=== PATIENT | male | born 1960 | race Caucasian/White ===

== ENCOUNTER 2016-12-10 08:55 | Inpatient (IN) | payer BC ==
[2016-11-21 11:04] LABS: % IMMATURE GRANULYOCYTES 0.4 % (0.0-1.1); ABSOLUTE IMMATURE GRANULOCYTES 0.03 10^3/uL (0.00-0.10); ADD DIFF? NO; ADD MORPH? NO; ADD SCAN? NO; ATYPICAL LYMPHOCYTE FLAG 0 (0-99); FRAGMENT RBC FLAG 0 (0-99); HEMATOCRIT 46.4 % (40.0-51.0); HEMOGLOBIN 16.4 g/dL (13.7-17.5); LEFT SHIFT FLG 0 (0-99); LIPEMIA HEMOLYSIS FLAG 90 (0-99); MEAN CELL HEMOGLOBIN 33.1 pg (27.9-34.1); MEAN CELL HEMOGLOBIN CONCENTR. 35.3 g/dL (32.4-36.7); MEAN CELL VOLUME 93.5 fL (81.5-99.8); MEAN PLATELET VOLUME 8.7 fL (8.7-11.7); PLATELET CLUMPS FLAG 0 (0-99); PLATELET COUNT 319 10^3/uL (150-400); RED BLOOD CELL COUNT 4.96 10^6/uL (4.40-6.38); RED CELL DISTRIBUTION WIDTH 12.2 % (11.5-15.2)
[~2016-12-10 08:55] MED LIST: BACITRACIN 50,000 UNITS/10 ML SYR IRR ONE; BUPIVACAINE/EPI 0.25% 30 ML SDV ONE; THROMBIN (RECOMBINANT) 5,000 UNIT VIAL TP ONE; ceFAZolin 2 GM/DEXTROSE 100 ML IV ONE
[2016-12-10] MEDS ORDERED: LR 1,000 ML IV ONE (09:11)
[2016-12-10] MEDS ORDERED: LIDOCAINE 1% 5 ML SDV ID PRN (09:11)
[2016-12-10] MEDS ORDERED: CEFAZOLIN 2 GM/DEXTROSE/100 ML BAG IV ONE (09:16)
[2016-12-10] MEDS ORDERED: LIDOCAINE 1% 5 ML SDV ONE (09:16)
[2016-12-10] MEDS ORDERED: fentaNYL 250 MCG/5 ML INJ ONE (09:42)
[2016-12-10] MEDS ORDERED: REMIFENTANIL HCL 1 MG VIAL ONE ×3 (09:42→13:57)
[2016-12-10] MEDS ORDERED: PROPOFOL/EMULSION 500 MG/50 ML BOTTLE IV ONE ×3 (09:42→13:57)
[2016-12-10] MEDS ORDERED: ROCURONIUM 50 MG/5 ML VIAL ONE (09:45)
[2016-12-10] MEDS ORDERED: MIDAZOLAM 2 MG/2 ML VIAL ONE (10:01)
[2016-12-10] MEDS ORDERED: PHENYLEPHRINE HCL 100 MCG/ML SYR ONE (10:18)
[2016-12-10] MEDS ORDERED: ALBUMIN 5% 250 ML BOTTLE IV ONE (10:42)
[2016-12-10] MEDS ORDERED: METHOCARBAMOL 750 MG TAB PO PRN (10:46)
[2016-12-10] MEDS ORDERED: BISACODYL 10 MG SUPP PR PRN (10:46)
[2016-12-10] MEDS ORDERED: HYDROmorphONE/DILAUDID 6 MG/30 ML PCA IV PRN (10:46)
[2016-12-10] MEDS ORDERED: HYDROCODONE/APAP 5/325 TAB PO PRN (10:46)
[2016-12-10] MEDS ORDERED: ONDANSETRON DISINTEGRATING 4 MG TAB PO PRN (10:46)
[2016-12-10] MEDS ORDERED: ONDANSETRON 4 MG/2 ML VIAL IVP PRN (10:46)
[2016-12-10] MEDS ORDERED: POLYETHYLENE GLYCOL 3350 17 GM PKT PO PRN (10:46)
[2016-12-10] MEDS ORDERED: diphenhydrAMINE 25 MG CAP PO PRN (10:46)
[2016-12-10] MEDS ORDERED: TEMAZEPAM 15 MG CAP PO PRN (10:46)
[2016-12-10] MEDS ORDERED: MAGNESIUM HYDROXIDE 30 ML UDCUP PO PRN (10:46)
[2016-12-10] MEDS ORDERED: LACTULOSE 20 GM/30 ML UDCUP PO PRN (10:46)
[2016-12-10] MEDS ORDERED: ACETAMINOPHEN 325 MG TAB PO PRN (10:46)
[2016-12-10] MEDS ORDERED: NALOXONE HCL 0.4 MG/ML INJ IVP PRN (10:46)
[2016-12-10] MEDS ORDERED: HYDROmorphONE/DILAUDID 2 MG TAB PO PRN (10:53)
[2016-12-10] MEDS ORDERED: ONDANSETRON 4 MG/2 ML VIAL ONE (14:09)
[2016-12-10] MEDS ORDERED: DEXAMETHASONE 4 MG/ML VIAL ONE (14:09)
[2016-12-10] MEDS ORDERED: fentaNYL 100 MCG/2 ML INJ ONE ×3 (14:38→15:17)
[2016-12-10] MEDS ORDERED: HYDROmorphONE/DILAUDID 1 MG/ML SYR ONE ×2 (14:38→15:40)
--- NOTE | 2016-12-10 14:41 | SOAPPROG ---
SOAP Progress Note Assessment/Plan: Post Op Visit: S: Awake and alert. NAD. Pt with expected lower back pain O: AFVSS/PERRLA/EOMI no droop CN 2-12 grossly intact +lt touch 5/5 BUE/BLE = CDI MACKENZIE in place A/P: 56 yo male that is s/p TLIF at L4/5 and L5/S1 -orders in place -call with any questions or concerns -pt seen by Dr Munoz -take medications as directed -brace when out of bed 12/10/16 14:38 Objective: Laboratory Results 11/21/16 10:29 ICD10 Worksheet Patient Problems: Problems Problem Status Onset Arthrodesis status Acute Lumbar radicular pain Acute Lumbar stenosis Acute - ICD10 Problem Qualifiers (1) Lumbar stenosis (2) Lumbar radicular pain (3) Arthrodesis status
[2016-12-10] MEDS ORDERED: DIAZEPAM 10 MG/2 ML SYR ONE (15:02)
--- NOTE | 2016-12-10 16:20 | GOP ---
DATE OF OPERATION: 12/10/2016 SURGEON: Cortez Munoz MD SWATCH MAKER: Steven Morton PA-C PREOPERATIVE DIAGNOSIS: 1. Severe lumbar spondylosis with left severe foraminal stenosis L5-S1. 2. Severe right foraminal stenosis L4-5. 3. Degenerative disk disease L4-5, L5-S1. 4. Chronic low back pain. 5. Lumbar spondylosis. 6. Left lumbosacral radiculopathy. 7. Historic right lumbar radiculopathy. POSTOPERATIVE DIAGNOSIS: 1. Severe lumbar spondylosis with left severe foraminal stenosis L5-S1. 2. Severe right foraminal stenosis L4-5. 3. Degenerative disk disease L4-5, L5-S1. 4. Chronic low back pain. 5. Lumbar spondylosis. 6. Left lumbosacral radiculopathy. 7. Historic right lumbar radiculopathy. PROCEDURE PERFORMED: Posterolateral and intervertebral arthrodesis with decompression L4-5, L5-S1 ( 19667, 77605), posterior segmental instrumentation at L4, L5, S1 (99123), placement of biomechanical intervertebral device L4-5, L5-S1 (34366 x 2), same incision bone graft harvest, spinal stereotaxy, microscope. FINDINGS: ESTIMATED BLOOD LOSS: 200 cc. INDICATIONS: The patient is a middle-aged gentleman with a long history of axial low back pain and a historic history of right-sided lumbosacral radiculopathy, but now had chronic terrible left butto ck pain and low back pain and his MRI demonstrated a complete collapse of the foramen and degenerati ve scoliosis on the left at L5-S1 with a degenerative tilt of 5-on-1, and a rightward tilt of L4-on- L5 compressing the right L4 nerve root in the neural foramen. I suggested a 2-level lumbosacral art hrodesis with decompression and I explained to him the risk that he may continue to have symptoms. He understood his symptoms could worsen after surgery. He knew there was no guarantee of success an d that surgery can make the problem worse. He knew there was a risk of adjacent segment disease, ps eudoarthrosis, the need for revision surgery, screw and hardware malposition and malfunction, CSF le ak, nerve injury, continued pain, failure to improve, and infection. He wanted to proceed despite t hese risks. DESCRIPTION OF PROCEDURE: The patient was taken to the operating room, placed in supine position. General anesthesia was begun. He was flipped prone onto the Kyle table. Care was taken to pad a ll points of contact. He was sterilely prepped and draped in the usual fashion. The O-arm was intr oduced sterilely onto the field. We made a midline incision at L4-5/5-1. It was about 5.5 to 6 cm in length and the subcutaneous tissue was dissected using Bovie cautery down through the fascia and a subperiosteal dissection was made down the 4-5-1 lamina. Self-retaining retractor was placed. A localizing x-ray was taken. We removed the bilateral hypertrophic and arthritic facet joints at L4- 5, 5-1, and they were quite remarkably bad. We had decorticated the TPs of L4, L5, and the sacrum. We preserved the L3-4 facet joint above. We tested Stealth reference frame, performed an O-arm spi n, and using frameless Stealth stereotaxy, placed pedicle screws bilaterally at L4, L5, and the sacr um. The L4 screws went ventrally into the a large ventral Schmorl node at the front of the L4 verte bral body, but they did not eng[place] the L3-4 disk, and they really did not even breach the Schmorl no de. They went right to the edge of the Schmorl node from the L3-4 disk. They all stimulated greate r than 20 milliamperes and an O-arm spin was made and we were happy with all of the hardware. We to ok 60 mm rods, put them down between L4, 5, and the sacrum. They were lordotic and we reduced the r od and got some increased the lordosis of the lumbar spine. He had a pre-existing flat back. Our i ntent was also put lordotic spacers in to help improve this. We shot x-rays with the rods in place in the cap screws were torqued to company specification. There was an increased lordosis. We then removed all the soft tissue of the bone at L4, 5, and sacrum, harvested the inferior L4 spinous proc ess for autologous grafting purposes. The L5 spinous process was harvested in its entirety, brought bony autograft. Under the scope, we drilled bilateral laminae at L4-5 and a left L5-S1 lamina. We harvested this for autologous grafting purposes. We then under the scope decompressed the left exi ting L5 root at the L5-S1 level and performed a left-sided S1 decompression at L5-S1. We performed a left L4-5 decompression at L4-5 and then went to the right side and decompressed the right L5 nerv e root at the 4-5 level. We then completely removed the right L4-5 facet on the left 5-1 facet, dec ompressing the exiting right L4 nerves at L4-5 and the left L5 nerve at L5-S1 and there was foramina l stenosis at each level and this had been alleviated somewhat by our distraction with the rods. We did decompress the nerve directly and under the operating microscope we removed from the left appro ach at 5-1 the 5-1 disk and the cartilaginous endplates at 4-5. We worked from the right side, simba ving the disk and the cartilaginous endplates. We then roughened the subchondral bone to create art hrodesis 4-5-1 and incised each space 4-5 and 5-1, and chose a 7 x 28 mm expandable Elevate cage. B oth cages were packed with a small amount of BMP. We used a grand total of 2 mg for the entire case , of which we placed 3/4 in the disk space at L4-5, 5-1. We placed bone autograft, inserted our exp andable cages, and expanded then under fluoroscopic guidance and they were in excellent position. W e then decorticated all the remaining posterolateral bone at L4-5 and sacrum to conclude our arthrod esis, placed bone autograft, and a small amount of BMP posterolaterally bilaterally. A cross-link w as placed. A subfascial drain was placed. We then closed the incision in multiple layers using Kana ryl sutures. A running PDS was placed in the skin itself. The patient was reversed from anesthesia , extubated, and transferred to the recovery room in stable condition. There were no complications. COMPLICATIONS: None. /[id number]/MODL
[2016-12-10] MEDS: HYDROmorphONE/DILAUDID 1 MG/ML SYR IVP PRN ×2 (16:57→19:58)
[2016-12-10] MEDS: HYDROCODONE/APAP 10/325 TAB PO PRN ×2 (17:30→22:01)
[2016-12-10] MEDS: NS W/ 20 KCl/L 1,000 ML IV SCH (18:07)
[2016-12-10] MEDS: DIAZEPAM 5 MG TAB PO PRN (19:58)
[2016-12-10] MEDS ORDERED: FAMOTIDINE 20 MG/NACL 50 ML IV SCH (21:00)
[2016-12-10] MEDS: morphINE SR 15 MG TAB PO SCH (21:56)
[2016-12-10] MEDS: SENNOSIDES/DOCUSATE SODIUM TAB PO SCH (21:57)
[2016-12-11] MEDS: HYDROmorphONE/DILAUDID 1 MG/ML SYR IVP PRN ×2 (03:00→11:31)
[2016-12-11 06:26] LABS: HEMATOCRIT 35.7 % (40.0-51.0); HEMOGLOBIN 12.7 g/dL (13.7-17.5)
[2016-12-11] MEDS: HYDROCODONE/APAP 10/325 TAB PO PRN ×2 (06:53→16:07)
--- NOTE | 2016-12-11 07:27 | NEUSURGPN ---
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 NAD. Eating/drinking and voiding. No f/c/n/v/d. No lee/neck /chest/abd or gu complaints. Objective: AFVSS/PERRLA/EOMI no droop CN 2-12 grossly intact +lt touch 5/5 BUE/BLE = CDI MACKENZIE in place Neuro Check Frequency: per routine Urinary Catheter in Place: No Catheter Insertion Date: 12/10/16 - Physician Discussed Patient with : Alexander Patient Seen by : Alexander Neurosurgery Physical Exam - Vitals, I&O, Labs I and O 12/10/16 12/11/16 12/12/16 05:59 05:59 05:59 Intake Total 1940 Output Total 2820 Balance -880 Weight 86.183 kg Intake: Oral (ml) 640 IV Intake (ml) 1200 IV Infused (ml) 100 ceFAZolin 2 GM/DEXTROSE 100 100 ml @ 200 mls/hr IV ONCALL ONE Rx#:[id number] Output: Urine (ml) 2350 Catheter 2350 Estimated Blood Loss (ml) 200 Wound Drainage (ml) 270 Left Back Kyle Martinez 270 Vital Signs Temp Pulse Resp BP Pulse Ox 37.1 C 70 14 128/87 H 97 12/11/16 07:14 12/11/16 07:14 12/11/16 07:14 12/11/16 07:14 12/11/16 07:14 Laboratory Results 12/11/16 04:38 ICD10 Worksheet Patient Problems: Problems Problem Status Onset Arthrodesis status Acute Lumbar radicular pain Acute Lumbar stenosis Acute - ICD10 Problem Qualifiers (1) Lumbar stenosis (2) Lumbar radicular pain (3) Arthrodesis status
[2016-12-11] MEDS: morphINE SR 15 MG TAB PO SCH ×2 (08:47→21:07)
[2016-12-11] MEDS: SENNOSIDES/DOCUSATE SODIUM TAB PO SCH ×2 (08:47→21:07)
[2016-12-11] MEDS: FAMOTIDINE 20 MG TAB PO SCH ×2 (13:44→21:07)
[2016-12-11] MEDS: DIAZEPAM 5 MG TAB PO PRN (17:41)
[2016-12-11] MEDS ORDERED: CALCIUM CARBONATE 500 MG CHEWABLE TAB PO PRN (22:01)
[2016-12-11] MEDS ORDERED: BISMUTH SUBSALICYLATE 262 MG CHEWABLE TAB PO PRN (22:01)
[2016-12-12] MEDS: HYDROmorphONE/DILAUDID 1 MG/ML SYR IVP PRN (07:23)
[2016-12-12] MEDS ORDERED: SCOPOLAMINE HYDROBROMIDE 1.5 MG PATCH TD ONE (07:47)
[2016-12-12] MEDS: DIAZEPAM 10 MG/2 ML SYR IVP PRN ×2 (07:52→15:43)
--- NOTE | 2016-12-12 07:52 | NEUSURGPN ---
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 No lee/neck/chest/abd or gu complaints. No f/c. Some continued nausea and hiccups. Objective: AFVSS/PERRLA/EOMI no droop CN 2-12 grossly intact +lt touch 5/5 BUE/BLE = CDI MACKENZIE site looks good Neuro Check Frequency: per routine Urinary Catheter in Place: No Catheter Insertion Date: 12/10/16 - Physician Discussed Patient with Dr.: Alexander Patient Seen by : Alexander Neurosurgery Physical Exam - Vitals, I&O, Labs I and O 12/11/16 12/12/16 12/13/16 05:59 05:59 05:59 Intake Total 1940 2100 Output Total 2820 2385 Balance -880 -285 Weight 86.183 kg Intake: Oral (ml) 640 2100 IV Intake (ml) 1200 IV Infused (ml) 100 ceFAZolin 2 GM/DEXTROSE 100 100 ml @ 200 mls/hr IV ONCALL ONE Rx#:[id number] Output: Urine (ml) 2350 2350 Catheter 2350 Toilet 500 Urinal 1850 Estimated Blood Loss (ml) 200 Wound Drainage (ml) 270 35 Left Back Kyle Martinez 270 35 Other: Number of Voids Toilet 1 Urinal 1 Bladder Scan Volume (ml) Urinal 850 Number of Emesis 1 Occurrences Vital Signs Temp Pulse Resp BP Pulse Ox 37.1 C 82 19 140/80 H 90 L 12/11/16 22:56 12/11/16 22:56 12/11/16 22:56 12/11/16 22:56 12/11/16 22:56 Laboratory Results 12/11/16 04:38 ICD10 Worksheet Patient Problems: Problems Problem Status Onset Arthrodesis status Acute Lumbar radicular pain Acute Lumbar stenosis Acute - ICD10 Problem Qualifiers (1) Lumbar stenosis (2) Lumbar radicular pain (3) Arthrodesis status
[2016-12-12] MEDS: NS W/ 20 KCl/L 1,000 ML IV SCH (08:00)
[2016-12-12] MEDS ORDERED: DIAZEPAM 10 MG/2 ML SYR IVP ONE (08:28)
[2016-12-12 09:29] LABS: ANION GAP 11 mEq/L (8-16); CALCIUM 9.3 mg/dL (8.5-10.4); CARBON DIOXIDE 26 mEq/l (22-31); CHLORIDE 103 mEq/L (97-110); CREATININE 0.8 mg/dL (0.7-1.3); GLOMERULAR FILTRATION RATE > 60; GLUCOSE 110 mg/dL (70-100); POTASSIUM 3.7 mEq/L (3.5-5.2); SODIUM 140 mEq/L (134-144)
[2016-12-12] MEDS: FAMOTIDINE 20 MG TAB PO SCH (12:46)
[2016-12-12] MEDS: SENNOSIDES/DOCUSATE SODIUM TAB PO SCH (12:46)
[2016-12-12] MEDS: morphINE SR 15 MG TAB PO SCH (12:47)
[2016-12-12 23:35] VITALS: O2SAT 95
[2016-12-13] MEDS: morphINE SR 15 MG TAB PO SCH ×2 (00:06→09:45)
[2016-12-13] MEDS: SENNOSIDES/DOCUSATE SODIUM TAB PO SCH ×2 (00:06→09:44)
[2016-12-13] MEDS: FAMOTIDINE 20 MG TAB PO SCH ×2 (00:06→09:45)
[2016-12-13] MEDS ORDERED: PATCH REMOVAL 1 EA PATCH TD ONE (07:47)
[2016-12-13 08:01] VITALS: BP 119/75; RESP 18; TEMP 98.8
--- NOTE | 2016-12-13 08:06 | NEUSURGPN ---
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 Pt is better today than yesterday. Hiccups better. No lee/ neck/chest/abd or gu complaints. No f/c/n/v/d. Objective: AFVSS/PERRLA/EOMI no droop CN 2-12 grossly intact +lt touch 5/5 BUE/BLE = CDI MACKENZIE site looks good Neuro Check Frequency: per routine Urinary Catheter in Place: No Catheter Insertion Date: 12/10/16 - Physician Discussed Patient with DrChapin: Alexander Patient Seen by : Alexander Neurosurgery Physical Exam - Vitals, I&O, Labs I and O 12/12/16 12/13/16 12/14/16 05:59 05:59 05:59 Intake Total 2100 1010 Output Total 2385 Balance -285 1010 Intake: Oral (ml) 2100 400 IV Infused (ml) 610 NS W/ 20 KCl/L 1,000 ml @ 510 75 mls/hr IV CONT ADRI Rx #:[id number] chlorproMAZINE HCL 25 mg 100 In Ns 50 ml @ 61.2 mls/hr IV Q8 PRN Rx#:[id number] Output: Urine (ml) 2350 Toilet 500 Urinal 1850 Wound Drainage (ml) 35 Left Back Kyle Martinez 35 Other: Number of Voids Toilet 1 1 Urinal 1 Bladder Scan Volume (ml) Urinal 850 Number of Emesis 1 Occurrences Vital Signs Temp Pulse Resp BP Pulse Ox 37.1 C 70 18 119/75 95 12/13/16 08:00 12/13/16 08:00 12/13/16 08:00 12/13/16 08:00 12/13/16 08:00 Laboratory Results 12/11/16 04:38 12/12/16 09:00 ICD10 Worksheet Patient Problems: Problems Problem Status Onset Arthrodesis status Acute Lumbar radicular pain Acute Lumbar stenosis Acute - ICD10 Problem Qualifiers (1) Lumbar stenosis (2) Lumbar radicular pain (3) Arthrodesis status
[2016-12-13] MEDS ORDERED: ENOXAPARIN 40 MG/0.4 ML SYR SC SCH (09:00)
[2016-12-13] MEDS: HYDROCODONE/APAP 10/325 TAB PO PRN (09:43)
[2016-12-13 10:53] VITALS: PULSE 178
== END 2016-12-13 15:53 | disposition home or self-care (01) | DRG 460 ==
LOC: F3N 08:55
PROVIDERS: ADMIT Neurological Surgery; ATTEND Neurological Surgery
DX: M47.27 Other spondylosis with radiculopathy, lumbosacral region (principal); M48.06 Spinal stenosis, lumbar region
CPT/HCPCS: 97116-GP; 97161-GP; 97165-GO; 97530-GP; 97535-GO; C1713; J0690; J1100; J1170; J1650; J2250; J2370; J2405; J2704; J3010; J3230; P9041

== ENCOUNTER → 2017-02-11 | Outpatient (CLI) | payer BC | LOC: BRMIMAGING 16:04 | PROVIDERS: ATTEND Nurse Practitioner | DX: Z09 Encounter for follow-up examination after completed treatment for conditions other than malignant neoplasm (principal); Z98.1 Arthrodesis status | CPT/HCPCS: 72100-PO ==

== ENCOUNTER → 2017-06-13 | Outpatient (CLI) | payer BC | LOC: BRMIMAGING 14:28 | PROVIDERS: ATTEND Physician Assistant | DX: Z09 Encounter for follow-up examination after completed treatment for conditions other than malignant neoplasm (principal); Z98.1 Arthrodesis status | CPT/HCPCS: 72100-PO ==

== ENCOUNTER → 2017-12-18 | Outpatient (CLI) | payer BC | LOC: BRMIMAGING 11:09 | PROVIDERS: ATTEND Nurse Practitioner | DX: Z98.1 Arthrodesis status (principal) | CPT/HCPCS: 72100-PO ==